=== PATIENT | female | born 1950 | race Caucasian/White ===

== ENCOUNTER 2024-03-28 12:47 | Day surgery (SDC) | payer MEDICARE, OTHER ==
[2024-03-28] MEDS: Lidocaine 1% 30 ML SDV INJECT ONE (13:55)
== END 2024-03-28 14:40 | disposition home or self-care (01) ==
LOC: CC.SDS 12:47
PROVIDERS: ATTEND Family Medicine
DX: I83.811 Varicose veins of right lower extremity with pain (principal); Z79.899 Other long term (current) drug therapy; Z88.2 Allergy status to sulfonamides; Z88.6 Allergy status to analgesic agent
CPT/HCPCS: 36482; C1888; J3490